=== PATIENT | female | born 1975 | race Caucasian/White ===

== ENCOUNTER 2017-09-14 18:36 | Emergency (ER) | payer BC ==
[2017-09-14 18:55] VITALS: BP 155/88
[2017-09-14] MEDS ORDERED: Fluorescein Sod TOPICAL 0.6* 0.6 MG TEST OPHTHALMIC ONE ×2 (18:57→18:59)
[2017-09-14] MEDS ORDERED: Tetracaine 0.5% OPTH.SOL 4 ML* 1 DROP BTL ONE (18:58)
[2017-09-14] MEDS ORDERED: BSS OPTH.SOL* BTL ONE (18:58)
[2017-09-14] MEDS ORDERED: Tetracaine 0.5% OPTH.SOL 4 ML* 1 DROP BTL LEFT EYE ONE (18:59)
--- NOTE | 2017-09-14 20:00 | UC ---
Eye Complaint HPI - HPI Summary HPI Summary: c/o pain earlier today as she was removing her soft contact lenses on her left eye, feels as if she had an eyelash in it. She denies blurred vision, discharge , pain around eyelids or fever. - History of Current Complaint Chief Complaint: UCEye Stated Complaint: FOREIGN OBJECT IN EYEC Time Seen by Provider: 09/14/17 18:46 Hx Obtained From: Patient Hx Last Menstrual Period: 10 days ago ?: No Onset/Duration: Sudden Onset, Lasting Hours Timing: Constant Severity Initially: Mild Severity Currently: Mild Pain Intensity: 2 Pain Scale Used: 0-10 Numeric Location of Injury: Globe Character: Foreign Body Sensation Aggravating Factor(s): Contact Lens Alleviating Factor(s): Nothing Associated Signs And Symptoms: Positive: Negative - Risk Factors Penetrating Injury Risk Factor: Negative Acute Glaucoma Risk Factors: Negative Optic Artery Occlusion Risk Factors: Negative - Allergies/Home Medications Allergies/Adverse Reactions: Allergies Allergy/AdvReac Type Severity Reaction Status Date / Time No Known Allergies Allergy Verified 09/14/17 18:55 Home Medications: Home Medications NK [No Home Medications Reported] 09/14/17 [History Confirmed 09/14/17] PMH/Surg Hx/FS Hx/Imm Hx Previously Healthy: Yes - Surgical History Surgical History: Yes Surgery Procedure, Year, and Place: tonsillectomy - Social History Alcohol Use: None Substance Use Type: None Smoking Status (MU): Never Smoked Tobacco Review of Systems Constitutional: Negative Eyes: Other - FB sensation All Other Systems Reviewed And Are Negative: Yes Physical Exam Triage Information Reviewed: Yes Appearance: Well-Appearing, No Pain Distress, Well-Nourished Vital Signs: Initial Vital Signs Temp 97.9 F 09/14/17 18:51 Pulse 58 09/14/17 18:51 Resp 16 09/14/17 18:51 BP 155/88 09/14/17 18:51 Pulse Ox 100 09/14/17 18:51 Vital Signs Reviewed: Yes Eyes: Positive: Conjunctiva Clear ENT: Positive: Pharynx normal, TMs normal, Other - linear transverse corneal abrassion on equatorial axis visualized under Wood's lamp and fluorescein. No eye discharge, [place], EOM wnl. Neck: Positive: Supple, Nontender Respiratory: Positive: Chest non-tender Eye Complaint Course/Dx - Course Course Of Treatment: corneal abrassion, instructed patient to avoid contact lenses for 2-3 days until no symptoms are present. F/u with eye clinic or PCP if symptoms have not resolved in 3 days. Tetracaine may be used prn TID for symptom control - Differential Dx/Diagnosis Provider Diagnoses: corneal abrassion left eye Discharge - Sign-Out/Discharge Documenting (check all that apply): Discharge/Admit/Transfer - Discharge Plan Condition: Stable Disposition: HOME Patient Education Materials: Corneal Abrasion (ED) Referrals: [facility] [place] [facility] REFERRAL [Outside] No Primary Care Phys,NOPCP [Primary Care Provider] - - Billing Disposition and Condition Condition: STABLE Disposition: HOME
== END 2017-09-14 19:30 | disposition home or self-care (01) ==
LOC: UCEAST 18:36
DX: S05.02XA Injury of conjunctiva and corneal abrasion without foreign body, left eye, initial encounter (principal); X58.XXXA Exposure to other specified factors, initial encounter; Y93.9 Activity, unspecified; Y92.9 Unspecified place or not applicable
CPT/HCPCS: 99201; A9270-GY; G0463